=== PATIENT | male | born 1980 | race Caucasian/White ===

== ENCOUNTER → 2016-09-23 | Outpatient (CLI) | payer BC ==
--- NOTE | 2016-09-23 14:16 | MR ---
EXAMINATION TYPE: MR lumbar spine wo con DATE OF EXAM: 09/23/2016 1:47 PM COMPARISON: NONE HISTORY: Back pain TECHNIQUE: Multiplanar, multisequence images of the lumbar spine were acquired. L1-L2: Mild decreased signal ossified compatible with degenerative disc disease. No herniation, protr usion or disc bulging. No canal stenosis is present. Foramina are patent bilaterally. L2-L3: [id number]-ly-nipfmabu decreased signal and loss of height. Subligamentous posterior central disc he rniation effaces the ventral thecal sac. No evidence for central stenosis or lateral recess stenosis. Facet joint arthropathy without foraminal encroachment. L3-L4: Moderate disc desiccation noted. Extruded disc herniation posteriorly centrally and slightly g reater towards the left. Extruded disc material measures 1.9 cm in cranial caudal dimension and resul ts in left lateral recess stenosis. No evidence for central stenosis. Mild left foraminal encroachmen t. L4-L5: Moderate disc desiccation noted. Moderate posterior central disc herniation with near extrusio n. Bilateral lateral recess stenosis left greater than right. Left foraminal encroachment. No evidenc e for central stenosis. Facet joint arthropathy. L5-S1: Mild decreased signal ossified compatible with degenerative disc disease. No herniation, protr usion or disc bulging. No canal stenosis is present. Foramina are patent bilaterally. Lumbar segments are intact. No paraspinal masses are identified. Conus medullaris has a normal appe arance. IMPRESSION: 1. Multilevel degenerative disc disease. 2. Extruded disc herniation at L3-4 with left lateral recess stenosis. 3. Moderate the disc herniation at L4-5 with near extrusion. Bilateral lateral recess stenosis left g reater than right.
== END | disposition home or self-care (01) ==
LOC: RADMRIMAIN 12:48
PROVIDERS: ATTEND Family Medicine
DX: M48.06 Spinal stenosis, lumbar region (principal); M51.16 Intervertebral disc disorders with radiculopathy, lumbar region
CPT/HCPCS: 72148